=== PATIENT | male | born 1965 | race Caucasian/White ===

== ENCOUNTER 2020-10-19 11:10 | Emergency (ER) | payer OTHER ==
[~2020-10-19] VITALS: Ht 177.8 cm; Wt 67.6 kg
--- NOTE | 2020-10-19 11:30 | NUR ---
[id number] FRM SCHVN FOR SUDDEN ONSET CHEST PAIN X 3 HOURS. 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 THE PATIENT RATES PAIN 10/10. ALSO, STATES THAT HE FEELS ANXIOUS AND WHENEVER HE GETS ANXIOUS HE GETS CHEST PAIN. THE PATIENT IS ATTACHED TO THE MONITOR. WARM BLANKET PROVIDED FOR Kanari. WILL CONTINUE TO MONITOR THE PATIENT.
[2020-10-19] MEDS ORDERED: KETOROLAC TROMETHAMINE 15 MG/ML VIAL ONE (11:56)
[2020-10-19] MEDS ORDERED: LORAZEPAM INJ 2 MG/ML VIAL ONE (11:58)
[2020-10-19] MEDS ORDERED: KETOROLAC TROMETHAMINE INJ 30 MG/ML VIAL IV ONE (12:00)
[2020-10-19] MEDS ORDERED: LORAZEPAM INJ 2 MG/ML VIAL IV ONE (12:00)
[2020-10-19] MEDS ORDERED: IV NS 0.9% 1,000 ML BAG IV ONE (12:00)
[2020-10-19 12:26] LABS: BASOPHILS # (AUTO) 0.1 /CMM (0.0-0.2); BASOPHILS % (AUTO) 0.8 % (0.0-2.0); EOSINOPHILS % (AUTO) 0.3 % (0.0-6.0); HEMATOCRIT 35 % (39-51); HEMOGLOBIN 11.4 g/dL (13.5-17.5); LYMPHOCYTES # (AUTO) 1.4 /CMM (0.8-4.8); LYMPHOCYTES % (AUTO) 20.6 % (20.0-44.0); MEAN CORPUSCULAR HGB CONC 33 g/dl (31.0-36.0); MEAN CORPUSCULAR VOLUME 79 fL (80-96); MONOCYTES # (AUTO) 0.4 /CMM (0.1-1.30); MONOCYTES % (AUTO) 6.4 % (2.0-12.0); NEUTROPHILS # (AUTO) 4.9 /CMM (1.8-8.9); NEUTROPHILS % (AUTO) 71.9 % (43.0-81.0); PLATELET COUNT (AUTO) 401 /CMM (150-450); RED BLOOD CELL COUNT(AUTO) 4.39 MIL/uL (4.5-6.0); WHITE BLOOD COUNT (AUTO) 6.9 K/uL (4.3-11.0)
[2020-10-19 12:35] LABS: CALCIUM, SERUM 8.7 mg/dL (8.5-10.1); CARBON DIOXIDE 22 mmol/L (21-32); CHLORIDE 103 mmol/L (98-107); CREATININE 0.8 mg/dL (0.6-1.3); GLUCOSE 165 mg/dL (74-106); POTASSIUM 3.7 mmol/L (3.5-5.1); SODIUM SERUM 138 mmol/L (136-145); UREA NITROGEN, BLOOD 19 mg/dL (7-18)
[2020-10-19 12:45] LABS: ALANINE AMINOTRANSFERASE 18 U/L (12-78); ALBUMIN 3.7 g/dL (3.4-5.0); ALCOHOL, BLOOD < 3 mg/dL (0-0); ALKALINE PHOSPHATASE 92 U/L (46-116); ASPARTATE AMINOTRANSFERASE 11 U/L (15-37); BILIRUBIN,DIRECT 0.1 mg/dL (0.0-0.2); BILIRUBIN,TOTAL 0.3 mg/dL (0.2-1.0); TOTAL PROTEIN, SERUM 7.2 g/dL (6.4-8.2)
[2020-10-19 12:46] LABS: ACETAMINOPHEN 0 ug/ml (10-30)
[2020-10-19 13:08] VITALS: BP 126/84
--- NOTE | 2020-10-19 13:20 | NUR ---
CALLED [id number] [phone] [facility] # [id number]
--- NOTE | 2020-10-19 13:58 | NUR ---
[facility] WILL TRANSPORT ETA 1600
--- NOTE | 2020-10-19 14:05 | NUR ---
Report given to lump room supervisor Jocelyn from [facility].
--- NOTE | 2020-10-19 14:42 | NUR ---
PATIENT A/OX4, BREATHING EVEN AND UNLABORED, DENIES CHEST PAIN AT THIS TIME. C/O MILD BACK PAIN, REPORT GIVEN TO JOB DEVELOPMENT SPECIALIST. PATIENT IN STABLE CONDITION. LEFT THE FACILITY TO [facility].
== END 2020-10-19 14:43 | disposition home or self-care (01) ==
LOC: ER 11:10
DX: F41.9 Anxiety disorder, unspecified (principal); R07.89 Other chest pain; I10 Essential (primary) hypertension; E11.9 Type 2 diabetes mellitus without complications; Z88.1 Allergy status to other antibiotic agents
CPT/HCPCS: 71045; 80048; 80076; 80143; 80307; 80320; 84484; 85025; 93005; 96361; 96374; 96375; 99285; J1885; J2060; J7030; 36415; G0480